=== PATIENT | female | born 1995 | race African-American/Black ===

== ENCOUNTER 2017-02-18 10:20 | Emergency (ER) | payer MEDICAID ==
[~2017-02-18] VITALS: Ht 162.6 cm; Wt 100.2 kg
[2017-02-18] MEDS ORDERED: NKM (10:31)
--- NOTE | 2017-02-18 10:47 | Emergency Room Report ---
History of Present Illness General Chief Complaint: Lower Extremity Injury Source: Patient Present Illness HPI Patient reports tripping over a hole in the ground, yesterday approximately 7 PM Has increased pain to the ankle and foot on the left side Denies any knee pain denies any pelvic pain Denies any chest pain or shortness of breath Pain to the foot and ankle area as 7/10 worse with ambulation Denies any other neuropathy Allergies: Coded Allergies: No Known Allergies (Unverified , 02/18/17) Patient History Past Medical History: see triage record Pertinent Family History: none Last Menstrual Period: Two weeks ago Now: No Reviewed Nursing Documentation: PMH: Agreed, PSxH: Agreed Nursing Documentation-PMH Past Medical History: No Stated History Review of Systems All Other Systems: negative except mentioned in HPI Physical Exam Vital Signs Date Time Temp Pulse Resp B/P (MAP) Pulse Ox O2 Delivery O2 Flow Rate FiO2 02/18/17 10:27 97.3 80 16 110/77 100 Room Air Sp02 EP Interpretation: reviewed, normal General Appearance: well appearing, no apparent distress Head: normocephalic, atraumatic Eyes: bilateral eye PERRL, bilateral eye EOMI ENT: normal pharynx, no angioedema Neck: full range of motion, supple Respiratory: lungs clear, normal breath sounds Musculoskeletal: other - Swelling involving the left lateral ankle region, also the dorsal foot Neurologic: alert, oriented x3, other - Neurovascular is intact with good pulses Skin: other - swelling is noted above Lymphatic: no adenopathy Procedures Splinting Splinting : Consent: Verbal Location: left ankle Pre-Made Type: aircast Splint: sugar-tong Pre-Proc Neuro Vasc Exam: normal Post-Proc Neuro Vasc Exam: normal Patient Tolerated: Well Complications: None Medical Decision Making Diagnostic Impression: Primary Impression: Foot sprain Additional Impression: Ankle sprain ER Course Given the patient's presentation imaging studies were obtained no obvious signs of acute fracture However given the swelling in the discomfort patient did have splint applied will be nonweightbearing And requires close outpatient followup Other X-Ray Diagnostic Results Other X-Ray Diagnostic Results #1: X-Ray ordered: left ankle # of Views/Limited Vs Complete: 3 View Indication: Pain EP Interpretation: Yes Interpretation: no dislocation, no soft tissue swelling, no fractures Impression: No acute disease Electronically Signed by: Delilah Mcdonald, DO Other X-Ray Diagnostic Results #2: X-Ray ordered: left foot # of Views/Limited Vs Complete: 3 View Indication: Pain EP Interpretation: Yes Interpretation: no dislocation, no soft tissue swelling, no fractures Impression: No acute disease Electronically Signed by: Delilah Mcdonald DO Last Vital Signs Date Time Temp Pulse Resp B/P (MAP) Pulse Ox O2 Delivery O2 Flow Rate FiO2 02/18/17 10:27 97.3 80 16 110/77 100 Room Air Status: improved Disposition: HOME, SELF-CARE Condition: Improved Scripts Acetaminophen (Tylenol) 325 Mg Tablet 650 MG ORAL Q6H Y for Prn Pain/Headache/Temp > 101, #30 TAB 0 Refills Prov: DELILAH MCDONALD D.O. 02/18/17 Ibuprofen* (MOTRIN*) 600 Mg Tablet 600 MG ORAL Q8H Y for For Pain, #20 TAB 0 Refills Prov: DELILAH MCDONALD D.O. 02/18/17 Additional Instructions: Patient is provided with the discharge instructions notified to follow up with primary doctor in the next 2-3 days otherwise return to the er with any worsening symptoms. Please note that this report is being documented using [employer] technology. This can lead to erroneous entry secondary to incorrect interpretation by the dictating instrument. DELILAH MCDONALD D.O. Feb 18, 2017 10:47
--- NOTE | 2017-02-18 11:33 | Diagnostic Imaging Report ---
Indication: Trauma with pain Technique: XRAY ANKLE MIN 3VWS LEFT Comparison: None. Findings: The osseous structures are intact. There is no fracture or destruction. The visualized joints are normal. The soft tissues are unremarkable. Impression: Normal.
--- NOTE | 2017-02-18 11:34 | Diagnostic Imaging Report ---
Indication: Trauma with pain Technique: XRAY FOOT MIN 3V LEFT Comparison: None. Findings: The osseous structures are intact. There is no fracture or destruction. The visualized joints are normal. The soft tissues are unremarkable. Impression: Normal.
[2017-02-18] MEDS ORDERED: IBUPROFEN600 MG ORAL (11:40)
[2017-02-18] MEDS ORDERED: TYLENOL325 MG ORAL (11:43)
[2017-02-18 12:03] VITALS: BP 110/77
== END 2017-02-18 12:03 | disposition home or self-care (01) ==
LOC: EMR 11:10
DX: S93.402A Sprain of unspecified ligament of left ankle, initial encounter (principal); W01.0XXA Fall on same level from slipping, tripping and stumbling without subsequent striking against object, initial encounter; Y92.89 Other specified places as the place of occurrence of the external cause
CPT/HCPCS: 99284

== ENCOUNTER 2018-02-25 00:32 | Emergency (ER) | payer MEDICAID ==
[~2018-02-25] VITALS: Ht 162.6 cm; Wt 97.5 kg
[~2018-02-25 00:32] MED LIST: IBUPROFEN600 MG ORAL; NKM; TYLENOL325 MG ORAL
[2018-02-25 00:40] VITALS: BP 112/62
[2018-02-25] MEDS ORDERED: HYDROCODON-ACE1 EA15 ORAL (00:56)
[2018-02-25] MEDS ORDERED: AMOXICILLIN500 MG ORAL (00:56)
--- NOTE | 2018-02-25 00:56 | Emergency Room Report ---
History of Present Illness General Chief Complaint: Pain Source: Patient Present Illness HPI Is a 22-year-old female with no past medical history. She is a 4 weeks . She presents with chief complaint of dental pain. Onset for 2 days. Worse with moving around. Worse with eating. Pain localized to the left upper second premolar. No swelling. Radiating to the lower jaw. Worse with eating. No fever or chills. Has appointment with dentist tomorrow. Allergies: Coded Allergies: No Known Allergies (Unverified , 02/18/17) Patient History Past Medical History: see triage record, old chart reviewed Past Surgical History: none Pertinent Family History: none Social History: Denies: smoking Last Menstrual Period: June 2017 Now: Yes - 34 weeks : 2 Para: 1 Immunizations: other Reviewed Nursing Documentation: PMH: Agreed; PSxH: Agreed Nursing Documentation-PMH Past Medical History: No History, Except For Hx Cardiac Problems: No - fibrilation -2013 Review of Systems Eye: Denies: eye pain, blurred vision ENT: Denies: ear pain, nose congestion, throat swelling Respiratory: Denies: cough, shortness of breath Cardiovascular: Denies: chest pain, palpitations Gastrointestinal: Denies: abdominal pain, diarrhea, nausea, vomiting Musculoskeletal: Denies: back pain, joint pain Skin: Denies: rash Neurological: Denies: headache, numbness Endocrine: Denies: increased thirst, increased urine Hematologic/Lymphatic: Denies: easy bruising All Other Systems: negative except mentioned in HPI Physical Exam Vital Signs Date Time Temp Pulse Resp B/P (MAP) Pulse Ox O2 Delivery O2 Flow Rate FiO2 02/25/18 00:35 98.4 88 16 112/62 98 Room Air vitals normal Sp02 EP Interpretation: reviewed, normal General Appearance: well appearing, no apparent distress, alert Head: normocephalic, atraumatic Eyes: bilateral eye PERRL, bilateral eye EOMI ENT: hearing grossly normal, normal pharynx, other - She has braces. No abscess. Neck: full range of motion, supple, no meningismus Respiratory: chest non-tender, lungs clear, normal breath sounds Cardiovascular #1: regular rate, rhythm, no murmur Gastrointestinal: normal bowel sounds, non tender, no mass, no organomegaly, no bruit, non-distended Musculoskeletal: back normal, gait/station normal, normal range of motion Psychiatric: mood/affect normal Skin: warm/dry Medical Decision Making Diagnostic Impression: Primary Impression: Pain, dental ER Course Patient with dental pain. May have infection at the root. No abscess seen to [facility]. We'll discharge home. Last Vital Signs Date Time Temp Pulse Resp B/P (MAP) Pulse Ox O2 Delivery O2 Flow Rate FiO2 02/25/18 00:40 98.4 76 16 112/62 98 Room Air Status: improved Disposition: HOME, SELF-CARE Condition: Stable Scripts Amoxicillin* (AMOXIL*) 500 Mg Capsule 500 MG ORAL THREE TIMES A DAY, #21 CAP Prov: Peter Pabon MD 02/25/18 Hydrocodone/Acetaminophen 5-325* (HYDROCODONE/ACETAMINOPHEN 5-325*) 1 Each Tablet 1 TAB ORAL Q6H PRN for For Pain, #10 TAB 0 Refills Prov: Peter Pabon MD 02/25/18 Additional Instructions: Follow-up with your dentist ESTELA. Return if symptom worsen. Peter Pabon MD Feb 25, 2018 00:56
[2018-02-25] MEDS ORDERED: Norco 5mg/325mg tab ORAL ONE (01:00)
[2018-02-25 01:09] VITALS: BP 115/60
== END 2018-02-25 01:10 | disposition home or self-care (01) ==
LOC: EMR 00:45
DX: O99.613 Diseases of the digestive system complicating pregnancy, third trimester (principal); Z3A.34 34 weeks gestation of pregnancy; K08.89 Other specified disorders of teeth and supporting structures
CPT/HCPCS: 99283

== ENCOUNTER 2018-06-16 22:54 | Emergency (ER) | payer MEDICAID ==
[~2018-06-16] VITALS: Ht 162.6 cm; Wt 99.8 kg
[~2018-06-16 22:54] MED LIST changes: +AMOXICILLIN500 MG ORAL; +HYDROCODON-ACE1 EA15 ORAL
[2018-06-16 23:02] VITALS: BP 114/63
--- NOTE | 2018-06-16 23:02 | NUR ---
ED Nurse Note: Pt arrived ED from home, c/o sore throat for 2 days. Pt is A/O X4. Vital signs stable at this time, waiting for orders.
[2018-06-16] MEDS ORDERED: Augmentin 875mg Tab ORAL ONE (23:15)
--- NOTE | 2018-06-16 23:18 | Emergency Room Report ---
History of Present Illness General Chief Complaint: Sore Throat Source: Patient Present Illness HPI Patient presents with complaints of sore throat ongoing for the past one day Denies any shortness of breath denies any vomiting Pain is worse with swallowing denies any fevers or chills denies any dysuria frequency Denies any back or flank pain Patient does have a history of smoking Denies any recent travel Questionable low-grade fever Denies any posterior neck pain or change in voice Allergies: Coded Allergies: No Known Allergies (Unverified , 06/16/18) Patient History Past Medical History: see triage record Pertinent Family History: none Last Menstrual Period: 06/04/18 Now: No : 2 Para: 2 Reviewed Nursing Documentation: PMH: Agreed; PSxH: Agreed Nursing Documentation-PMH Past Medical History: No History, Except For Hx Cardiac Problems: Yes - Catheter Ablation for Atrial Fibrillation Review of Systems All Other Systems: negative except mentioned in HPI Physical Exam Vital Signs Date Time Temp Pulse Resp B/P (MAP) Pulse Ox O2 Delivery O2 Flow Rate FiO2 06/16/18 22:56 98.6 98 18 111/65 98 Room Air Sp02 EP Interpretation: reviewed, normal General Appearance: well appearing, no apparent distress Head: normocephalic, atraumatic Eyes: bilateral eye PERRL, bilateral eye EOMI ENT: hearing grossly normal, normal voice, TMs + canals normal, uvula midline, pharyngeal erythema Neck: full range of motion, supple, no meningismus, no bony tend Respiratory: lungs clear, normal breath sounds, no rhonchi, no respiratory distress, no retraction, no accessory muscle use Cardiovascular #1: normal peripheral pulses, regular rate, rhythm, no edema, no gallop, no JVD, no murmur Gastrointestinal: normal bowel sounds, non tender, soft, no mass, no organomegaly, non-distended, no guarding, no hernia, no pulsatile mass, no rebound Genitourinary: no CVA tenderness Musculoskeletal: normal inspection Neurologic: oriented x3, responsive, cupboard builder III-XII nml as tested, motor strength/ tone normal, sensory intact Psychiatric: mood/affect normal Skin: normal color, no rash, warm/dry, palpation normal Lymphatic: normal inspection, no adenopathy Medical Decision Making Diagnostic Impression: Primary Impression: Pharyngitis ER Course Patient's conical history and exam is consistent with likely bacterial pharyngitis My suspicion for retropharyngeal abscess or peritonsillar abscess is low and does not appear clinically consistent patient was provided with initial antibiotic here and stable for close outpatient follow-up Last Vital Signs Date Time Temp Pulse Resp B/P (MAP) Pulse Ox O2 Delivery O2 Flow Rate FiO2 06/16/18 23:02 98.5 84 18 114/63 98 Room Air Status: improved Disposition: HOME, SELF-CARE Condition: Improved Scripts Ibuprofen* (MOTRIN*) 600 Mg Tablet 600 MG ORAL Q8H PRN for For Pain, #20 TAB 0 Refills Prov: Delilah Alvarado DO 06/16/18 Amoxicillin/Potassium Clav 875-125* (AUGMENTIN 875-125 TABLET*) 1 Each Tablet 1 TAB ORAL TWICE A DAY, #14 TAB Prov: Delilah Alvarado DO 06/16/18 Additional Instructions: Patient is provided with the discharge instructions notified to follow up with primary doctor in the next 2-3 days otherwise return to the er with any worsening symptoms. Please note that this report is being documented using [employer] technology. This can lead to erroneous entry secondary to incorrect interpretation by the dictating instrument. Delilah Alvarado DO Jun 16, 2018 23:17
[2018-06-16] MEDS ORDERED: AUGMENTIN 875-1 EAC1 ORAL (23:28)
[2018-06-16] MEDS ORDERED: IBUPROFEN600 MG ORAL (23:28)
--- NOTE | 2018-06-16 23:32 | NUR ---
ER DISCHARGE NOTE: Patient is cleared to be discharged per Dr. Alvarado. Meds given as ordered. Pt is A/O x 4 on room air with stable vital signs. Pt was given D/C and prescription instructions and was able to verbalize understanding. Pt's ID band removed. Pt is able to ambulate with steady gait and took all belongings.
== END 2018-06-16 23:32 | disposition home or self-care (01) ==
LOC: EMR 23:30
DX: J02.9 Acute pharyngitis, unspecified (principal); Z87.891 Personal history of nicotine dependence
CPT/HCPCS: 99282

== ENCOUNTER 2019-03-12 13:56 | Emergency (ER) | payer MEDICAID ==
[~2019-03-12] VITALS: Ht 162.6 cm; Wt 104.3 kg
[~2019-03-12 13:56] MED LIST changes: +AUGMENTIN 875-1 EAC1 ORAL
[2019-03-12 14:11] VITALS: BP 116/72
--- NOTE | 2019-03-12 14:12 | NUR ---
ED Nurse Note: Patient walked in to ER from home due to Lt upper and lower toothache 12/19. pt reported she had cracked Lt upper tooth 2 months ago and since then toothache occured frequently. however, this morning Lt lower tooth started hurting which is new onset. pt aao x4 and ambulatory. pt moaning for toothache but cooperative. no cardiac or pulmonary distress noted at this moment.
--- NOTE | 2019-03-12 14:27 | Emergency Room Report ---
History of Present Illness General Chief Complaint: Toothache Source: Patient Present Illness HPI 23-year-old female with no significant past medical history here complaining of sudden onset of a 10 out of 10 tooth pain and left upper molar. Patient reports that the same tooth was hurting few months ago patient was treated with penicillin at [facility] and was told to follow-up with dentist however due to being at time could not be seen by dentist. Patient reports that the pain is now back rating a 10 out of 10 without radiation. Has full range of motion of facial muscles denies any pus drainage, fever and chills, trauma to the face. Denies chest pain, shortness of breath, palpitation, no other associated symptoms. Has been taking cehs-aal-kwftahy Tylenol Extra Strength with minimal relief. Patient denies at this time. Allergies: Coded Allergies: No Known Allergies (Unverified , 06/16/18) Patient History Past Medical History: see triage record Past Surgical History: none Pertinent Family History: none Last Menstrual Period: Mar 08, 2019 Now: No Immunizations: UTD Reviewed Nursing Documentation: PMH: Agreed; PSxH: Agreed Nursing Documentation-PMH Past Medical History: No History, Except For Hx Cardiac Problems: Yes - Catheter Ablation for Atrial Fibrillation Review of Systems All Other Systems: negative except mentioned in HPI Physical Exam Vital Signs Date Time Temp Pulse Resp B/P (MAP) Pulse Ox O2 Delivery O2 Flow Rate FiO2 03/12/19 14:06 98.2 82 17 116/72 (87) 97 Room Air Sp02 EP Interpretation: reviewed, normal General Appearance: no apparent distress, alert, GCS 15, non-toxic Head: normocephalic, atraumatic Eyes: bilateral eye normal inspection, bilateral eye PERRL ENT: hearing grossly normal, EOM grossly intact, normal pharynx, no angioedema , normal voice, TMs + canals normal, other - Swelling in left upper molar possible infection Neck: full range of motion, supple, no meningismus, no carotid bruits, supple/ symm/no masses Respiratory: chest non-tender, lungs clear, normal breath sounds, no rhonchi, no retraction, no wheezing, speaking full sentences Cardiovascular #1: regular rate, rhythm, no edema, no murmur, normal capillary refill Gastrointestinal: normal bowel sounds, non tender, soft, non-distended, no guarding, no rebound Genitourinary: no CVA tenderness Neurologic: alert, motor strength/tone normal, oriented x3, sensory intact, responsive, speech normal Psychiatric: judgement/insight normal, memory normal, mood/affect normal, no suicidal/homicidal ideation Skin: no rash Lymphatic: no adenopathy Medical Decision Making PA Attestation Diagnosis and treatment plans were reviewed and discussed with my supervising physician Dr. Cano Diagnostic Impression: Primary Impression: Tooth infection ER Course 23-year-old female with no significant past medical history here complaining of sudden onset of a 10 out of 10 tooth pain and left upper molar. Patient reports that the same tooth was hurting few months ago patient was treated with penicillin at [facility] and was told to follow-up with dentist however due to being at time could not be seen by dentist. Patient reports that the pain is now back rating a 10 out of 10 without radiation. Has full range of motion of facial muscles denies any pus drainage, fever and chills, trauma to the face. Denies chest pain, shortness of breath, palpitation, no other associated symptoms. Has been taking visl-kci-dhpdsgu Tylenol Extra Strength with minimal relief. Patient denies at this time. Ddx considered but are not limited to : Tooth abscess, strep pharyngitis, tooth infection, loose tooth Vital signs: are WNL, pt. is afebrile H&PE are most consistent with: Tooth infection ORDERS: Amoxicillin, ibuprofen, lidocaine viscous ED INTERVENTIONS: Amoxicillin, Toradol DISCHARGE: At this time pt. is stable for d/c to home. Will provide printed patient care instructions, and any necessary prescriptions. Care plan and follow up instructions have been discussed with the patient prior to discharge. Take medication as directed, follow with your dentist, and listed few dental offices that patient can go to. If worsening symptoms return to emergency room Last Vital Signs Date Time Temp Pulse Resp B/P (MAP) Pulse Ox O2 Delivery O2 Flow Rate FiO2 03/12/19 14:11 98.2 78 17 116/72 97 Room Air Disposition: HOME, SELF-CARE Condition: Stable Scripts Lidocaine HCl 2% Viscous (Lidocaine HCl 2% Viscous) 100 Ml Solution 15 ML ORAL QID, #100 ML Prov: Nahun Pierce 03/12/19 Amoxicillin* (AMOXIL*) 500 Mg Capsule 500 MG ORAL EVERY 8 HOURS for 10 Days, #30 CAP Prov: Nahun Pierce 03/12/19 Ibuprofen (Ibu) 800 Mg Tablet 800 MG PO TID, #30 TAB Prov: Nahun Pierce 03/12/19 Patient Instructions: Dental Pain Additional Instructions: Follow-up with your dentist, take medication as directed, if worsening symptoms return to emergency room Nahun Pierce Mar 12, 2019 14:27
[2019-03-12] MEDS ORDERED: AMOXICILLIN500 MG ORAL (14:29)
[2019-03-12] MEDS ORDERED: IBU800 MG PO (14:29)
[2019-03-12] MEDS ORDERED: Amoxicillin 250mg/5ml susp 100ml ORAL ONE (14:30)
[2019-03-12] MEDS ORDERED: Ketorolac 30mg Inj IM ONE (14:30)
[2019-03-12] MEDS ORDERED: LIDOCAINE VISC100 ML ORAL (14:30)
[2019-03-12 14:55] VITALS: BP 116/72
--- NOTE | 2019-03-12 15:00 | NUR ---
ER DISCHARGE NOTE: Patient is cleared to be discharged per CORIN NATHAN, pt is aox4, on room air, with stable vital signs. pt was given dc and prescription instructions, pt was able to verbalize understanding, pt id band removed without complications. pt is able to ambulate with steady gait. pt took all belongings.
== END 2019-03-12 14:55 | disposition home or self-care (01) ==
LOC: EMR 14:33
DX: K04.7 Periapical abscess without sinus (principal)
CPT/HCPCS: 96372; J1885; Z7502; 99283